=== PATIENT | female | born 1955 | race Caucasian/White ===

== ENCOUNTER 2017-01-30 09:39 | Outpatient (CLI) | payer MEDICAID, OTHER ==
[2017-01-30 10:52] LABS: Anion Gap 13 mmol/L (10-20); BUN (Urea Nitrogen) 16 mg/dL (9.8-20.1); Calc. Creatinine Clearance 0 mL/min (70-130); Calcium 8.7 mg/dL (7.8-10.44); Carbon Dioxide 22 mmol/L (22-29); Chloride 105 mmol/L (98-107); Estimated GFR-MDRD 67; Glucose 104 mg/dL (70-105); Potassium 4.1 mmol/L (3.5-5.1); Sodium 136 mmol/L (136-145)
== END 2017-01-30 09:40 | disposition home or self-care (01) ==
LOC: HPCALD 09:39
PROVIDERS: ATTEND Family Medicine
DX: E87.6 Hypokalemia (principal); G40.309 Generalized idiopathic epilepsy and epileptic syndromes, not intractable, without status epilepticus
CPT/HCPCS: 36415; 80048; 80184

== ENCOUNTER 2017-03-13 09:50 | Outpatient (CLI) | payer OTHER | END 2017-03-13 09:51 | disposition home or self-care (01) | LOC: HPCALD 09:50 | PROVIDERS: ATTEND Family Medicine | DX: Z51.81 Encounter for therapeutic drug level monitoring (principal); G40.309 Generalized idiopathic epilepsy and epileptic syndromes, not intractable, without status epilepticus | CPT/HCPCS: 36415; 80184 ==

== ENCOUNTER 2017-04-29 08:56 | Emergency (ER) | payer OTHER | END 2017-04-29 10:20 | disposition home or self-care (01) | LOC: BURERS 08:56 | DX: L03.114 Cellulitis of left upper limb (principal) | CPT/HCPCS: 99283 ==

== ENCOUNTER 2017-08-13 08:20 | Emergency (ER) | payer OTHER ==
[2017-08-13] MEDS ORDERED: Ibuprofen 200 MG TAB ONE (08:34)
--- NOTE | 2017-08-13 21:13 | RAD ---
CHEST TWO VIEWS 08/13/17 Comparison is made with a 08/16/16 study. The heart is normal in size. There is no vascular congestion, edema, or pleural effusions. There is n o major lobar infiltrate to suggest pneumonia. A few areas of linear streaking are seen in the left l figueroa adjacent to the heart which were not present before. These may be interval scarring or subsegment al atelectasis. The trachea is midline and the mediastinum is unremarkable. Slight amounts of retroca rdiac streaking is no different than the prior study. IMPRESSION: Aside from perhaps a little atelectasis or scarring on the left, there are no acute findings. POS: HOME
== END 2017-08-13 09:19 | disposition home or self-care (01) ==
LOC: BURERS 08:20
DX: J11.1 Influenza due to unidentified influenza virus with other respiratory manifestations (principal); G40.909 Epilepsy, unspecified, not intractable, without status epilepticus; Z79.899 Other long term (current) drug therapy; Z86.73 Personal history of transient ischemic attack (TIA), and cerebral infarction without residual deficits
CPT/HCPCS: 71020

== ENCOUNTER 2018-02-12 13:18 | Emergency (ER) | payer OTHER ==
--- NOTE | 2018-02-12 17:38 | RAD ---
LEFT RIBS WITH PA CHEST 02/12/18 A PA film of the chest shows a normal sized heart and clear lungs. The mediastinum shows no widening or shift. There is no vascular congestion, effusion, or pneumothorax. The overlying soft tissues and slight osteopenia decreases the sensitivity of the study to subtle fra ctures. No gross rib fractures were appreciated. IMPRESSION: No acute findings. POS: HOME
== END 2018-02-12 14:04 | disposition home or self-care (01) ==
LOC: BURERS 13:18
DX: S20.212A Contusion of left front wall of thorax, initial encounter (principal); Z86.73 Personal history of transient ischemic attack (TIA), and cerebral infarction without residual deficits; Z79.899 Other long term (current) drug therapy; W50.1XXA Accidental kick by another person, initial encounter; Y92.34 Swimming pool (public) as the place of occurrence of the external cause

== ENCOUNTER 2018-08-18 13:51 | Outpatient (CLI) | payer OTHER ==
--- NOTE | 2018-08-18 19:16 | RAD ---
LUMBAR SPINE COMPLETE WITH BENDING VIEWS: 08/18/2018 FINDINGS: There is a slight compression of the superior endplate of the L3 vertebral body. I do not know if th is is new or old. The other vertebrae appear intact, and the disk spaces are normal in height. View s between flexion and extension reveal no abnormal motion in the lumbar spine. The SI joints appear normal. IMPRESSION: Mild compression of the superior endplate of L3, age indeterminate. CODE T POS: HOME
== END 2018-08-18 13:52 | disposition home or self-care (01) ==
LOC: BURRAD 13:51
PROVIDERS: ATTEND Family Medicine
DX: M54.5 Low back pain (principal)
CPT/HCPCS: 72100

== ENCOUNTER 2019-03-27 08:42 | Emergency (ER) | payer OTHER ==
[2019-03-27] MEDS ORDERED: Sodium Bicarbonate 2.5 MEQ/5 ML VIAL ONE (09:05)
[2019-03-27] MEDS ORDERED: Lidocaine 1% PF 5 ML VIAL ONE (09:05)
[2019-03-27] MEDS ORDERED: Adacel (T-DAP) 0.5 ML SYRINGE ONE (09:20)
== END 2019-03-27 09:28 | disposition home or self-care (01) ==
LOC: BURERS 08:42
DX: L02.415 Cutaneous abscess of right lower limb (principal); Z86.73 Personal history of transient ischemic attack (TIA), and cerebral infarction without residual deficits; Z79.899 Other long term (current) drug therapy; Z79.891 Long term (current) use of opiate analgesic
CPT/HCPCS: 10060; 87070; 87077; 87186; 87205; 90471; 90715; 96372; J2001

== ENCOUNTER 2019-05-07 08:29 | Outpatient (CLI) | payer OTHER ==
--- NOTE | 2019-05-07 10:52 | RAD ---
LUMBAR SPINE WITH BENDING VIEWS: Date: 05/07/19 AP and lateral views were obtained. Flexion, neutral, and extension views were done on the lateral po rtions of the study. Comparison made with the 11/05/18 MRI of the lumbar spine. Again noted is the mild anterior compression fracture of L3. There was no abnormal motion in the spin e between flexion and extension. The disc spaces are normal in height. No additional fractures seen. SI joints appear normal. IMPRESSION: Mild compression of L3 with little change since the prior MRI. No abnormal motion seen with bending. POS: HOME
== END 2019-05-07 08:30 | disposition home or self-care (01) ==
LOC: EEVIPCON 08:29 → BURRAD 08:29
PROVIDERS: ATTEND Nurse Practitioner Family
DX: S32.039G Unspecified fracture of third lumbar vertebra, subsequent encounter for fracture with delayed healing (principal)
CPT/HCPCS: 72120

== ENCOUNTER 2019-05-27 09:17 | Emergency (ER) | payer OTHER ==
[2019-05-27] MEDS ORDERED: Sulfameth/Trimethoprim DS 800-160mg TAB ONE (09:54)
== END 2019-05-27 09:45 | disposition home or self-care (01) ==
LOC: BURERS 09:17
DX: L02.31 Cutaneous abscess of buttock (principal); L03.115 Cellulitis of right lower limb; Z86.73 Personal history of transient ischemic attack (TIA), and cerebral infarction without residual deficits
CPT/HCPCS: 99283

== ENCOUNTER 2019-07-21 13:59 | Emergency (ER) | payer OTHER | END 2019-07-21 14:30 | disposition home or self-care (01) | LOC: BURERS 13:59 | DX: J11.1 Influenza due to unidentified influenza virus with other respiratory manifestations (principal) | CPT/HCPCS: 99283 ==

== ENCOUNTER 2019-08-01 11:43 | Emergency (ER) | payer OTHER ==
[2019-08-01] MEDS ORDERED: Ondansetron PF 4 MG/2 ML Vial ONE (12:25)
[2019-08-01] MEDS ORDERED: cefTRIAXone\\ROCEPHIN 2 GM VIAL ONE (12:25)
== END 2019-08-01 14:01 | disposition home or self-care (01) ==
LOC: BURERS 11:43
DX: J06.9 Acute upper respiratory infection, unspecified (principal); Z86.73 Personal history of transient ischemic attack (TIA), and cerebral infarction without residual deficits
CPT/HCPCS: 96365; 96375; J0696; J2405

== ENCOUNTER 2019-09-10 08:06 | Emergency (ER) | payer OTHER ==
[2019-09-10] MEDS ORDERED: Fluorescein Opthalmic Strip ONE (08:34)
[2019-09-10] MEDS ORDERED: Tetracaine 0.5% OPHTH SOLN/PF 4 ML BOT ONE (08:34)
== END 2019-09-10 08:43 | disposition home or self-care (01) ==
LOC: BURERS 08:06
DX: S05.02XA Injury of conjunctiva and corneal abrasion without foreign body, left eye, initial encounter (principal); S05.01XA Injury of conjunctiva and corneal abrasion without foreign body, right eye, initial encounter; Z86.73 Personal history of transient ischemic attack (TIA), and cerebral infarction without residual deficits; Z79.899 Other long term (current) drug therapy; Z79.891 Long term (current) use of opiate analgesic
CPT/HCPCS: 99283

== ENCOUNTER 2019-09-17 12:21 | Emergency (ER) | payer OTHER ==
[2019-09-17] MEDS ORDERED: Tetracaine 0.5% OPHTH SOLN/PF 4 ML BOT ONE (12:49)
[2019-09-17] MEDS ORDERED: Fluorescein Opthalmic Strip ONE (12:49)
[2019-09-17] MEDS ORDERED: Neomycin-Polymyxin-Hc 7.5 ML BOT ONE (13:04)
[2019-09-17] MEDS ORDERED: hydrOXYzine 25 MG TAB ONE (13:04)
== END 2019-09-17 13:11 | disposition home or self-care (01) ==
LOC: BURERS 12:21
DX: S05.02XA Injury of conjunctiva and corneal abrasion without foreign body, left eye, initial encounter (principal); S05.01XA Injury of conjunctiva and corneal abrasion without foreign body, right eye, initial encounter; Z86.73 Personal history of transient ischemic attack (TIA), and cerebral infarction without residual deficits; Z79.891 Long term (current) use of opiate analgesic; Z79.899 Other long term (current) drug therapy; X58.XXXA Exposure to other specified factors, initial encounter
CPT/HCPCS: 99283

== ENCOUNTER 2019-09-22 10:20 | Emergency (ER) | payer OTHER ==
[2019-09-22] MEDS ORDERED: Fluorescein Opthalmic Strip ONE (10:50)
[2019-09-22] MEDS ORDERED: Tetracaine 0.5% OPHTH SOLN/PF 4 ML BOT ONE (10:50)
== END 2019-09-22 11:05 | disposition home or self-care (01) ==
LOC: BURERS 10:20
DX: S05.02XA Injury of conjunctiva and corneal abrasion without foreign body, left eye, initial encounter (principal); S05.01XA Injury of conjunctiva and corneal abrasion without foreign body, right eye, initial encounter; Z79.899 Other long term (current) drug therapy; Z86.73 Personal history of transient ischemic attack (TIA), and cerebral infarction without residual deficits; X58.XXXA Exposure to other specified factors, initial encounter
CPT/HCPCS: 99283

== ENCOUNTER 2019-10-05 16:56 | Emergency (ER) | payer OTHER ==
[2019-10-05 17:35] LABS: Bilirubin Negative (Negative); Blood, Urine Moderate (Negative); Clarity Clear (Clear); Glucose, Urine (Dipstick) Negative (Negative); Leukocyte Small (Negative); Nitrite Negative (Negative); Protein, Urine (Dipstick) Negative (Neg-Trace); Urobilinogen 0.2 mg/dL (Less than 2)
[2019-10-05 17:36] LABS: Bacteria/HPF 2+ HPF (None Seen); Mucous/LPF 1+ LPF (<2+); Squamous Epithelial 0-3 HPF (0-3); WBC/HPF 0-3 HPF (0-3)
== END 2019-10-05 18:03 | disposition home or self-care (01) ==
LOC: BURERS 16:56
DX: L02.31 Cutaneous abscess of buttock (principal); N30.00 Acute cystitis without hematuria; Z86.73 Personal history of transient ischemic attack (TIA), and cerebral infarction without residual deficits; Z79.899 Other long term (current) drug therapy
CPT/HCPCS: 10060; 81003; 81015; 87086

== ENCOUNTER 2019-10-14 10:48 | Emergency (ER) | payer OTHER ==
[2019-10-14] MEDS ORDERED: Aspirin Chewable 81 MG TAB ONE ×2 (10:55→11:30)
[2019-10-14 11:18] LABS: #Basophils 0.1 thou/uL (0.0-0.2); #Eosinphils 0.1 thou/uL (0.0-0.7); #Monocytes 0.9 thou/uL (0.11-0.59); #Neutrophils 6.4 thou/uL (1.40-6.50); %Basophils 0.6 % (0.0-1.0); %Eosinophils 1.1 % (0.0-10.0); %Monocytes 9.7 % (0.0-10.0); %Neutrophils 67.6 % (42.0-75.0); Hemoglobin 12.9 g/dL (12.0-16.0); Mean Corpuscular Hemoglobin 30.6 pg (27.0-31.0); Mean Corpuscular Volume 95.5 fL (78.0-98.0); Mean Platelet Volume 7.3 fL (7.4-10.4); Platelet Count 239 thou/uL (130-400); RBC Distribution Width 12.8 % (11.5-14.5); Red Blood Cell (RBC) Count 4.22 mill/uL (4.20-5.40); White Blood Cell (WBC) Count 9.5 thou/uL (4.8-10.8)
[2019-10-14] MEDS ORDERED: Nitroglycerin 0.4 MG TAB 1 EACH ONE (11:30)
[2019-10-14] MEDS ORDERED: Nitroglycerin 2% Ointment 1 INCH/1 GM Packet ONE (11:30)
[2019-10-14 11:31] LABS: ALT (SGPT) 22 U/L (8-55); AST (SGOT) 28 U/L (5-34); Alkaline Phosphatase 177 U/L (40-110); Anion Gap 13 mmol/L (10-20); BUN (Urea Nitrogen) 19 mg/dL (9.8-20.1); Bilirubin, Total 0.2 mg/dL (0.2-1.2); Calc. Creatinine Clearance 0 mL/min (70-130); Calcium 8.9 mg/dL (7.8-10.44); Carbon Dioxide 25 mmol/L (23-31); Chloride 108 mmol/L (98-107); Estimated GFR-MDRD 73; Glucose 105 mg/dL (80-115); Potassium 3.4 mmol/L (3.5-5.1); Sodium 143 mmol/L (136-145)
--- NOTE | 2019-10-14 15:39 | RAD ---
PORTABLE CHEST: 10/14/19 An AP portable film at 1120 is compared with a 08/13/17 study. The heart is normal in size and the lungs are clear. No infiltrate or effusion was seen. There is no vascular congestion or edema. At most, some of the interstitial markings of the lungs might be minima lly increased such as would be seen with fibrosis. The left hilum is a little more prominent than it was in 2017, but this is most likely due to positioning and portable technique. IMPRESSION: No definite acute findings. POS: HOME
== END 2019-10-14 13:40 | disposition short-term general hospital (02) ==
LOC: BURERS 10:48
DX: R07.89 Other chest pain (principal); Z86.73 Personal history of transient ischemic attack (TIA), and cerebral infarction without residual deficits; Z79.899 Other long term (current) drug therapy; Z79.51 Long term (current) use of inhaled steroids
CPT/HCPCS: 36415; 71045; 80053; 83880; 84484; 85025; 93005

== ENCOUNTER 2020-11-03 08:58 | Outpatient (CLI) | payer OTHER ==
--- NOTE | 2020-11-03 11:12 | RAD ---
RIGHT HIP 2 VIEWS: Date: 11/03/2020 There is an impacted subcapital fracture of the right hip. The femoral head shows no dislocation or d isplacement. The joint space is normal in width. There is slight sclerosis at the impaction site. The adjacent pubic ring appears intact. IMPRESSION: Impacted subcapital fracture of the hip. POS: HOME
== END 2020-11-03 08:59 | disposition home or self-care (01) ==
LOC: BURRAD 08:58
PROVIDERS: ATTEND Nurse Practitioner Family
DX: M25.551 Pain in right hip (principal); S72.011A Unspecified intracapsular fracture of right femur, initial encounter for closed fracture

== ENCOUNTER 2021-05-14 09:02 | Emergency (ER) | payer OTHER ==
[2021-05-14] MEDS ORDERED: Ondansetron PF 4 MG/2 ML Vial ONE (09:53)
[2021-05-14] MEDS ORDERED: Glycopyrrolate 0.4 MG/ 2 ML VIAL ONE (09:53)
[2021-05-14 10:10] LABS: #Eosinphils 0.1 thou/uL (0.0-0.7); #Lymphocytes 1.8 thou/uL (1.20-3.40); #Monocytes 0.9 thou/uL (0.11-0.59); #Neutrophils 3.7 thou/uL (1.40-6.50); %Basophils 0.6 % (0.0-1.0); %Eosinophils 1.3 % (0.0-10.0); %Lymphocytes 27.7 % (21.0-51.0); %Neutrophils 56.4 % (42.0-75.0); Hemoglobin 12.7 g/dL (12.0-16.0); Mean Corpuscular HGB CONC 32.9 g/dL (32.0-36.0); Mean Corpuscular Hemoglobin 32.6 pg (27.0-31.0); Mean Corpuscular Volume 99.1 fL (78.0-98.0); Mean Platelet Volume 7.2 fL (7.4-10.4); Platelet Count 205 thou/uL (130-400); RBC Distribution Width 12.4 % (11.5-14.5); White Blood Cell (WBC) Count 6.5 thou/uL (4.8-10.8)
[2021-05-14 10:19] LABS: ALT (SGPT) 23 U/L (8-55); AST (SGOT) 17 U/L (5-34); Albumin 4.2 g/dL (3.4-4.8); Alkaline Phosphatase 149 U/L (40-110); Anion Gap 13 mmol/L (10-20); BUN (Urea Nitrogen) 15 mg/dL (9.8-20.1); Bilirubin, Total 0.3 mg/dL (0.2-1.2); Calc. Creatinine Clearance 0 mL/min (70-130); Calcium 9.5 mg/dL (7.8-10.44); Carbon Dioxide 25 mmol/L (23-31); Chloride 103 mmol/L (98-107); Globulin 3.9 g/dL (2.4-3.5); Glucose 98 mg/dL (80-115); Lipase 10 U/L (8-78); Potassium 3.3 mmol/L (3.5-5.1); Protein, Total 8.1 g/dL (5.8-8.1); Sodium 138 mmol/L (136-145)
[2021-05-14 10:50] LABS: Bilirubin Negative (Negative); Blood, Urine Large (Negative); Clarity Cloudy (Clear); Glucose, Urine (Dipstick) Negative (Negative); Ketone, Urine Negative (Negative); Leukocyte Small (Negative); Nitrite Negative (Negative); Protein, Urine (Dipstick) Trace mg/dL (Neg-Trace); Specific Gravity, Urine 1.025 (1.005-1.030); Urobilinogen 0.2 mg/dL (Less than 2); pH, Urine 5.5 (5.0-9.0)
[2021-05-14 10:53] LABS: Bacteria/HPF 2+ HPF (None Seen); Mucous/LPF 3+ LPF (<2+); Squamous Epithelial 0-3 HPF (0-3)
[2021-05-14] MEDS ORDERED: cefTRIAXone\\ROCEPHIN 2 GM VIAL ONE (11:17)
== END 2021-05-14 13:11 | disposition home or self-care (01) ==
LOC: BURERS 09:02
DX: R19.7 Diarrhea, unspecified (principal); R11.2 Nausea with vomiting, unspecified; R63.8 Other symptoms and signs concerning food and fluid intake; Z86.73 Personal history of transient ischemic attack (TIA), and cerebral infarction without residual deficits; Z20.822 Contact with and (suspected) exposure to COVID-19
CPT/HCPCS: 36415; 80053; 81003; 81015; 83690; 85025; 87077; 87086; 96365; 96375; J0696; J2405

== ENCOUNTER 2023-05-16 10:38 | Emergency (ER) | payer OTHER ==
[2023-05-16 11:25] LABS: #Basophils 0.1 thou/uL (0.0-0.2); #Monocytes 0.6 thou/uL (0.11-0.59); #Neutrophils 2.3 thou/uL (1.40-6.50); %Basophils 1.1 % (0.0-1.0); %Eosinophils 0.9 % (0.0-10.0); %Monocytes 12.1 % (0.0-10.0); %Neutrophils 45.9 % (42.0-75.0); Hematocrit 34.6 % (36.0-47.0); Mean Corpuscular HGB CONC 31.7 g/dL (32.0-36.0); Mean Corpuscular Hemoglobin 30.8 pg (27.0-31.0); Mean Corpuscular Volume 97.3 fl (78.0-98.0); Mean Platelet Volume 6.6 fL (7.4-10.4); Platelet Count 235 10x3/uL (130-400); RBC Distribution Width 13.2 % (11.5-14.5); Red Blood Cell (RBC) Count 3.56 mill/uL (4.20-5.40)
[2023-05-16 11:41] LABS: ALT (SGPT) 25 U/L (8-55); AST (SGOT) 33 U/L (5-34); Albumin 3.9 g/dL (3.4-4.8); Alkaline Phosphatase 98 U/L (40-110); Anion Gap 18 mmol/L (10-20); BUN (Urea Nitrogen) 13 mg/dL (9.8-20.1); Bilirubin, Total 0.5 mg/dL (0.2-1.2); Calc. Creatinine Clearance 0 mL/min (70-130); Calcium 8.9 mg/dL (7.8-10.44); Carbon Dioxide 24 mmol/L (23-31); Chloride 104 mmol/L (98-107); Estimated GFR 96; Globulin 3.6 g/dL (2.4-3.5); Glucose 98 mg/dL (80-115); Lipase 17 U/L (8-78); Protein, Total 7.5 g/dL (5.8-8.1); Sodium 143 mmol/L (136-145)
[2023-05-16] MEDS ORDERED: Potassium Chloride 20 MEQ TAB ONE (12:09)
[2023-05-16 13:26] LABS: Bilirubin Negative (Negative); Blood, Urine Trace (Negative); Clarity Slightly Cloudy (Clear); Glucose, Urine (Dipstick) Negative (Negative); Ketone, Urine Negative (Negative); Leukocyte Moderate (Negative); Nitrite Negative (Negative); Protein, Urine (Dipstick) Negative (Neg-Trace); Urobilinogen 0.2 mg/dL (Less than 2)
[2023-05-16 13:27] LABS: Specific Gravity, Urine 1.008 (1.002-1.036)
[2023-05-16 13:49] LABS: Bacteria/HPF 3+ HPF (None Seen); CAUTI Indications for Culture Acute Hematuria
[2023-05-16 13:50] LABS: Urine Culture Reflex No No
== END 2023-05-16 13:45 | disposition home or self-care (01) ==
LOC: BURERS 10:38
DX: R19.7 Diarrhea, unspecified (principal); E86.0 Dehydration
CPT/HCPCS: 80053; 81001; 83605; 83690; 85025; 96360; 96361

== ENCOUNTER 2023-05-31 09:44 | Emergency (ER) | payer OTHER ==
[2023-05-31 10:12] LABS: Bilirubin Negative (Negative); Blood, Urine Moderate (Negative); Clarity Clear (Clear); Glucose, Urine (Dipstick) Negative (Negative); Ketone, Urine Negative (Negative); Leukocyte Negative (Negative); Nitrite Negative (Negative); Protein, Urine (Dipstick) Trace mg/dL (Neg-Trace); Urobilinogen 0.2 mg/dL (Less than 2); pH, Urine 5.5 (5.0-9.0)
[2023-05-31 10:23] LABS: CAUTI Indications for Culture Alt mental st,lethar; Squamous Epithelial 0-3 HPF (0-3); WBC/HPF 0-3 HPF (0-3)
[2023-05-31 10:24] LABS: Bacteria/HPF None Seen HPF (None Seen)
[2023-05-31 10:25] LABS: Urine Culture Reflex No No
[2023-05-31 10:54] LABS: ALT (SGPT) 30 U/L (8-55); AST (SGOT) 38 U/L (5-34); Alkaline Phosphatase 111 U/L (40-110); Anion Gap 21 mmol/L (10-20); BUN (Urea Nitrogen) 18 mg/dL (9.8-20.1); Bilirubin, Total 0.3 mg/dL (0.2-1.2); Calc. Creatinine Clearance 0 mL/min (70-130); Calcium 9.4 mg/dL (7.8-10.44); Carbon Dioxide 18 mmol/L (23-31); Chloride 107 mmol/L (98-107); Estimated GFR 92; Globulin 3.9 g/dL (2.4-3.5); Glucose 98 mg/dL (80-115); Protein, Total 7.9 g/dL (5.8-8.1); Sodium 142 mmol/L (136-145)
[2023-05-31 10:56] LABS: #Basophils 0.1 thou/uL (0.0-0.2); #Lymphocytes 0.8 thou/uL (1.20-3.40); #Monocytes 0.9 thou/uL (0.11-0.59); #Neutrophils 8.4 thou/uL (1.40-6.50); %Basophils 0.6 % (0.0-1.0); %Lymphocytes 7.5 % (21.0-51.0); %Monocytes 9.1 % (0.0-10.0); %Neutrophils 82.8 % (42.0-75.0); Hematocrit 34.6 % (36.0-47.0); Hemoglobin 11.5 g/dL (12.0-16.0); Mean Corpuscular HGB CONC 33.2 g/dL (32.0-36.0); Mean Corpuscular Hemoglobin 33.4 pg (27.0-31.0); Mean Platelet Volume 10.3 fL (7.4-10.4); Platelet Count 193 10x3/uL (130-400); RBC Distribution Width 12.8 % (11.5-14.5); Red Blood Cell (RBC) Count 3.44 mill/uL (4.20-5.40); White Blood Cell (WBC) Count 10.2 10x3/uL (4.8-10.8)
[2023-05-31 10:59] LABS: Potassium 4.3 mmol/L (3.5-5.1)
[2023-05-31 11:27] LABS: Acetaminophen Less than 10 mcg/mL (10.0-30.0); Alcohol Less than 10.0 mg/dL (Less than 10); Salicylate Less than 8.0 mg/dL (15.0-30.0)
== END 2023-05-31 12:18 | disposition home or self-care (01) ==
LOC: BURERS 09:44
DX: M62.81 Muscle weakness (generalized) (principal); F11.20 Opioid dependence, uncomplicated; R53.81 Other malaise
CPT/HCPCS: 51701; 70450; 71046; 80053; 80307; 81001; 85025; 86140; 96360; 96361

== ENCOUNTER 2024-03-29 09:57 | Emergency (ER) | payer MEDICARE, MEDICAID | END 2024-03-29 11:10 | disposition home or self-care (01) | LOC: BURERS 09:57 | DX: S80.12XA Contusion of left lower leg, initial encounter (principal); W01.198A Fall on same level from slipping, tripping and stumbling with subsequent striking against other object, initial encounter ==

== ENCOUNTER 2025-04-12 15:03 | Outpatient (CLI) | payer MEDICARE, MEDICAID | END 2025-04-12 15:04 | disposition home or self-care (01) | LOC: BURRAD 15:03 | PROVIDERS: ATTEND Family Medicine | DX: S42.213A Unspecified displaced fracture of surgical neck of unspecified humerus, initial encounter for closed fracture (principal) ==